=== PATIENT | female | born 1980 | race Caucasian/White ===

== ENCOUNTER 2018-12-02 18:53 | Emergency (ER) | payer OTHER, MEDICAID ==
[~2018-12-02] VITALS: Ht 165.1 cm; Wt 64.4 kg
[~2018-12-02 18:53] MED LIST: FLAGYL500 MG PO; HYDROCODON-ACE1 EAC7; HYDROCODONE-AP1 EAC6 PO; IBUPROFEN 600600 M1 PO; LIDOCAINE VISC100 M1 SWISH&SPIT; NAPROSYN500 MG PO; ONDANSETRON HCL4 M2 PO; PENICILLIN V P500 MG PO; TRAMADOL 50 MG50 MG
[2018-12-02 19:17] VITALS: BP 115/72
[2018-12-02] MEDS ORDERED: ROBITUSSIN100 MG/53 PO (19:30)
[2018-12-02] MEDS ORDERED: KEFLEX500 M1 PO (19:30)
[2018-12-02] MEDS ORDERED: TESSALON PERLE100 MG PO (19:30)
== END 2018-12-02 19:40 | disposition home or self-care (01) ==
LOC: M.ERS 18:53
DX: J02.9 Acute pharyngitis, unspecified (principal); J45.909 Unspecified asthma, uncomplicated